=== PATIENT | male | born 1940 | race Two or more races ===

== ENCOUNTER 2020-09-17 11:10 | Outpatient (CLI) | payer OTHER | END 2020-09-17 11:19 | disposition home or self-care (01) | LOC: MRI 11:10 | PROVIDERS: ATTEND General Practice | DX: I69.398 Other sequelae of cerebral infarction (principal); F03.90 Unspecified dementia, unspecified severity, without behavioral disturbance, psychotic disturbance, mood disturbance, and anxiety; E11.21 Type 2 diabetes mellitus with diabetic nephropathy | CPT/HCPCS: 70553; A9575 ==

== ENCOUNTER 2021-04-12 14:18 | Inpatient (IN) | payer OTHER ==
[~2021-04-12] VITALS: Ht 167.6 cm; Wt 77.1 kg
[2021-04-12] MEDS ORDERED: NOVOLIN R100 UNIT/1 IJ (14:26)
[2021-04-12] MEDS ORDERED: METOPROLOL SUC100 MG PO (14:26)
[2021-04-12] MEDS ORDERED: ST. JOSEPH ASPI81 M2 PO (14:27)
[2021-04-12] MEDS ORDERED: PREDNISONE10 M2 PO (14:27)
[2021-04-12] MEDS ORDERED: HYDROCHLOROTHIA25 MG PO (14:27)
[2021-04-12] MEDS ORDERED: GLIMEPIRIDE2 M1 PO (14:28)
[2021-04-12] MEDS ORDERED: PANTOPRAZOLE SO40 MG PO (14:28)
[2021-04-12] MEDS ORDERED: GABAPENTIN100 M2 PO (14:28)
[2021-04-12] MEDS ORDERED: METFORMIN HCL1000 M3 PO (14:28)
[2021-04-12] MEDS ORDERED: ATORVASTATIN CA40 MG (14:28)
[2021-05-05] MEDS ORDERED: LASIX20 MG PO (09:44)
[2021-05-05] MEDS ORDERED: BUDESONIDE0.5 MG/2 M IH (09:44)
[2021-05-05] MEDS ORDERED: CAPOTEN12.5 MG PO (09:44)
[2021-05-05] MEDS ORDERED: PROTEINEX-18 LI30 ML PO (09:44)
[2021-05-05] MEDS ORDERED: HYDRALAZINE HCL50 MG PO (09:44)
[2021-05-05] MEDS ORDERED: HUMULIN N100 UNIT/2 SUBCUTANEO (09:44)
[2021-05-05] MEDS ORDERED: XOPENEX CO1.25 MG/0. IH (09:44)
[2021-05-05] MEDS ORDERED: AMLODIPINE BESYL5 MG PO (09:44)
== END 2021-05-05 15:06 | disposition home health service (06) | DRG 981 ==
LOC: ER 14:18 → MEDI 20:30 → SEC-K 20:30 → MEDI 04-13 01:31
PROVIDERS: Surgery; ADMIT Internal Medicine; ATTEND Internal Medicine
PROC: 4A12X4Z Monitoring of Cardiac Electrical Activity, External Approach (ICD-10-PCS; 2021-04-12)
PROC: 5A09557 Assistance with Respiratory Ventilation, Greater than 96 Consecutive Hours, Continuous Positive Airway Pressure (ICD-10-PCS; 2021-04-12)
PROC: 02HV33Z Insertion of Infusion Device into Superior Vena Cava, Percutaneous Approach (ICD-10-PCS; 2021-04-14)
PROC: 30233N1 Transfusion of Nonautologous Red Blood Cells into Peripheral Vein, Percutaneous Approach (ICD-10-PCS; 2021-04-15)
PROC: 8E0ZXY6 Isolation (ICD-10-PCS; 2021-04-15)
PROC: 0HB6XZZ Excision of Back Skin, External Approach (ICD-10-PCS; 2021-04-20)
PROC: 4A033R1 Measurement of Arterial Saturation, Peripheral, Percutaneous Approach (ICD-10-PCS; 2021-04-22)
PROC: 0DH60UZ Insertion of Feeding Device into Stomach, Open Approach (ICD-10-PCS; principal; 2021-04-23 07:00)
DX: J96.01 Acute respiratory failure with hypoxia (principal); I21.A1 Myocardial infarction type 2; J69.0 Pneumonitis due to inhalation of food and vomit; N17.8 Other acute kidney failure; N39.0 Urinary tract infection, site not specified; I11.0 Hypertensive heart disease with heart failure; I50.9 Heart failure, unspecified; G30.9 Alzheimer's disease, unspecified; F02.80 Dementia in other diseases classified elsewhere, unspecified severity, without behavioral disturbance, psychotic disturbance, mood disturbance, and anxiety; L89.159 Pressure ulcer of sacral region, unspecified stage; I48.0 Paroxysmal atrial fibrillation; E86.0 Dehydration; R13.19 Other dysphagia; E11.649 Type 2 diabetes mellitus with hypoglycemia without coma; Z74.01 Bed confinement status; Z66 Do not resuscitate; Z20.822 Contact with and (suspected) exposure to COVID-19; Z79.4 Long term (current) use of insulin